=== PATIENT | male | born 1955 | race American Indian/Alaskan Native ===

== ENCOUNTER 2017-09-23 21:20 | Emergency (ER) | payer OTHER ==
[2017-09-23] MEDS ORDERED: ATIVAN IV ONE (22:50)
[2017-09-23] MEDS ORDERED: NACL 0.9% 500 ML 500 ML IV ONE (22:51)
[2017-09-23 23:12] LABS: Basophils % (Auto) 0.7 % (0.0-1.8); Eosinophils % (Auto) 0.8 % (0.0-4.3); Hemoglobin 13.4 gm/dl (11.8-15.2); Lymphocytes # (Auto) 1.1 K/mm3 (1.2-5.4); Lymphocytes % (Auto) 28.6 % (13.4-35.0); Mean Corpuscular HGB Conc 34 % (32-34); Mean Corpuscular Hemoglobin 32 pg (28-32); Mean Corpuscular Volume 95 fl (84-94); Monocytes # (Auto) 0.3 K/mm3 (0.0-0.8); Monocytes % (Auto) 7.5 % (0.0-7.3); Platelet Count 167 K/mm3 (140-440); Red Blood Count 4.23 M/mm3 (3.65-5.03); Red Cell Distribution Width 14.3 % (13.2-15.2)
[2017-09-23 23:22] LABS: INR 0.87 (0.87-1.13)
[2017-09-23 23:23] LABS: Partial Thromboplastin Time 27.5 Sec. (24.2-36.6)
[2017-09-23 23:37] LABS: Creatine Kinase MB 1.4 ng/mL (0.0-4.0)
[2017-09-23 23:38] LABS: Alanine Aminotransferase 27 units/L (7-56); Albumin 4.4 g/dL (3.9-5); BUN/Creatinine Ratio 20; Blood Urea Nitrogen 14 mg/dL (9-20); Calcium 8.7 mg/dL (8.4-10.2); Hemolysis Index 8
[2017-09-23] MEDS ORDERED: POTASSIUM CHLORIDE PO ONE (23:58)
[2017-09-23] MEDS ORDERED: NACL 0.9% 1000 ML 1,000 ML IV ONE (23:59)
--- NOTE | 2017-09-24 00:04 | Emergency Department Report ---
<MILLIE JIMÉNEZ - Last Filed: 09/24/17 05:06> ED Psych HPI - General Chief Complaint: Psych Stated Complaint: AMS Time Seen by Provider: 09/23/17 22:22 - Related Data Allergies Allergy/AdvReac Type Severity Reaction Status Date / Time No Known Allergies Allergy Verified 09/24/17 00:00 ED Review of Systems ROS: Stated complaint: AMS Other details as noted in HPI ED Course Vital Signs 09/23/17 09/23/17 09/24/17 22:35 23:00 00:00 Temperature Pulse Rate 113 H 106 H 105 H Respiratory 29 H 22 14 Rate Blood Pressure 154/94 142/86 121/67 O2 Sat by Pulse 95 96 95 Oximetry 09/24/17 09/24/17 09/24/17 00:03 00:07 01:00 Temperature Pulse Rate 109 H 103 H Respiratory 12 20 14 Rate Blood Pressure 121/67 119/73 O2 Sat by Pulse 96 96 95 Oximetry 09/24/17 09/24/17 09/24/17 01:30 01:35 01:41 Temperature Pulse Rate 101 H 97 H 101 H Respiratory 13 12 12 Rate Blood Pressure 125/76 125/76 125/76 O2 Sat by Pulse 97 97 95 Oximetry 09/24/17 09/24/17 09/24/17 01:45 01:51 01:54 Temperature 98.1 F Pulse Rate 100 H 101 H Respiratory 11 L 14 Rate Blood Pressure 125/76 125/76 O2 Sat by Pulse 97 98 Oximetry 09/24/17 09/24/17 09/24/17 01:55 02:00 03:00 Temperature Pulse Rate 99 H 97 H 94 H Respiratory 13 13 11 L Rate Blood Pressure 125/76 125/66 110/68 O2 Sat by Pulse 97 95 94 Oximetry 09/24/17 09/24/17 04:00 05:00 Temperature Pulse Rate 87 83 Respiratory 12 10 L Rate Blood Pressure 118/71 119/73 O2 Sat by Pulse 95 97 Oximetry ED Medical Decision Making - Lab Data Result diagrams: 09/23/17 22:59 09/23/17 22:59 - Medical Decision Making I evaluated Mr. Horne. He is awake and alert. He denies any chest pain. He is appropriate and cooperative. and patient understand return precautions and follow-up instructions. Critical care attestation.: If time is entered above; I have spent that time in minutes in the direct care of this critically ill patient, excluding procedure time. ED Disposition Clinical Impression: Marijuana intoxication, Hypokalemia, Altered mental status, Chest pain Disposition: DC-01 TO HOME OR SELFCARE Is pt being admited?: No Does the pt Need Aspirin: No Condition: Stable Instructions: Cannabis Abuse (ED) Additional Instructions: Your Diagnoses is marijuana intoxication. There is no marijuana intoxication discharge instructions therefore cannabis abuse discharge instructions have been provided. Follow-up with your doctor. Return if symptoms worsen. Referrals: your, pmd [Other] - 3-5 Days Time of Disposition: 05:07 <SALAS PORTILLO - Last Filed: 09/24/17 16:36> ED Psych HPI - General Source: patient, family, EMS Mode of arrival: Stretcher Limitations: Altered Mental Status - History of Present Illness Initial Comments: 62-year-old male with a past medical history of hypertension and mitral valve prolapse presents with his with complaints of possible marijuana ingestion and altered mental status. Apparently there was a marijuana brownie in the kitchen. Patient came to and stated he felt like he was dizzy, dying and had chest pain. After arrival to the ED he admitted CVA in the brownie that was laced with marijuana. Patient does not smoke marijuana, uses drugs, or drink alcohol daily. He did not know that the brownie contained marijuana and ingested the whole thing. During my evaluation patient is having involuntary jerking, agitated, talking to God but is alert and oriented to self and year. History of present illness obtained from given patient's current mental state. He does not pain her pain at this time ED Review of Systems Comment: Unobtainable due to pts medical conditions ED Past Medical Hx - Past Medical History Previous Medical History?: Yes Hx Hypertension: Yes Additional medical history: mitral valve prolapse - Surgical History Past Surgical History?: No - Social History Smoking Status: Never Smoker Substance Use Type: Alcohol ED Physical Exam - General Limitations: Altered Mental Status - Other Other exam information: General: No limitations, patient is alert in no acute distress Head exam: Atraumatic, normocephalic Eyes exam: Normal appearance, pupils equal reactive to light ENT: Moist mucous membrane, normal oropharynx Neck exam: Normal inspection, full range of motion, no meningismus nontender Respiratory exam: Clear to auscultation bilateral, no wheezes, rales, crackles Cardiovascular: Tachycardic regular rhythm Abdomen: Soft, nondistended, and nontender, with normal bowel sounds, no rebound, or guarding Extremity: Full range of motion normal inspection no deformity Back: Normal Inspection, full range of motion, no tenderness Neurologic: Alert, oriented x3, cranial nerves intact, no motor or sensory deficit, involuntary jerking movement Psychiatric: Agitated, psychosis Skin: Warm, dry, intact ED Course - Reevaluation(s) Reevaluation #1: 09/24/17 00:03 After Ativan 0.5 mg patient is resting comfortably 09/24/17 02:03 HR 99 - Consultations Consultation #1: 09/23/17 23:[address] Merchant wind operations manager [employer] community relations coordinator regarding EKG. Agrees that it does not appear to be in ST elevation [place] ED Medical Decision Making - Lab Data Result diagrams: 09/23/17 22:59 09/23/17 22:59 Lab Results 09/23/17 09/23/17 09/23/17 Range/Units 22:59 22:59 22:59 WBC 3.9 L (4.5-11.0) K/mm3 RBC 4.23 (3.65-5.03) M/mm3 Hgb 13.4 (11.8-15.2) gm/dl Hct 40.0 (35.5-45.6) % MCV 95 H (84-94) fl MCH 32 (28-32) pg MCHC 34 (32-34) % RDW 14.3 (13.2-15.2) % Plt Count 167 (140-440) K/mm3 Lymph % (Auto) 28.6 (13.4-35.0) % [place] % (Auto) 7.5 H (0.0-7.3) % Eos % (Auto) 0.8 (0.0-4.3) % Baso % (Auto) 0.7 (0.0-1.8) % Lymph # 1.1 L (1.2-5.4) K/mm3 [place] # 0.3 (0.0-0.8) K/mm3 Eos # 0.0 (0.0-0.4) K/mm3 Baso # 0.0 (0.0-0.1) K/mm3 Seg Neutrophils % 62.4 (40.0-70.0) % Seg Neutrophils # 2.4 (1.8-7.7) K/mm3 PT 12.2 (12.2-14.9) Sec. INR 0.87 (0.87-1.13) APTT 27.5 (24.2-36.6) Sec. Sodium 140 (137-145) mmol/L Potassium 3.4 L (3.6-5.0) mmol/L Chloride 101.2 (98-107) mmol/L Carbon Dioxide 24 (22-30) mmol/L Anion Gap 18 mmol/L BUN 14 (9-20) mg/dL Creatinine 0.7 L (0.8-1.5) mg/dL Estimated GFR > 60 ml/min BUN/Creatinine Ratio 20 % Glucose 109 H (75-100) mg/dL Calcium 8.7 (8.4-10.2) mg/dL Total Bilirubin 0.40 (0.1-1.2) mg/dL AST 25 (5-40) units/L ALT 27 (7-56) units/L Alkaline Phosphatase 60 (35-129) units/L Total Creatine Kinase 120 (55-170) units/L CK-MB (CK-2) 1.4 (0.0-4.0) ng/mL CK-MB (CK-2) Rel Index 1.1 (0-4) Troponin T < 0.010 (0.00-0.029) ng/mL Total Protein 6.8 (6.3-8.2) g/dL Albumin 4.4 (3.9-5) g/dL Albumin/Globulin Ratio 1.8 % Urine Color (Yellow) Urine Turbidity (Clear) Urine pH (5.0-7.0) Ur Specific [place] (1.003-1.030) Urine Protein (Negative) mg/dL Urine Glucose (UA) (Negative) mg/dL Urine Ketones (Negative) mg/dL Urine Blood (Negative) Urine Nitrite (Negative) Urine Bilirubin (Negative) Urine Urobilinogen (<2.0) mg/dL Ur Leukocyte Esterase (Negative) Urine WBC (Auto) (0.0-6.0) /HPF Urine RBC (Auto) (0.0-6.0) /HPF Urine Mucus /HPF Urine Opiates Screen Urine Methadone Screen Ur Barbiturates Screen Ur Phencyclidine Scrn Ur Amphetamines Screen U Benzodiazepines Scrn Urine Cocaine Screen U Marijuana (THC) Screen Drugs of Abuse Note Plasma/Serum Alcohol (0-0.07) % 09/23/17 09/23/17 09/23/17 Range/Units 22:59 Unknown Unknown WBC (4.5-11.0) K/mm3 RBC (3.65-5.03) M/mm3 Hgb (11.8-15.2) gm/dl Hct (35.5-45.6) % MCV (84-94) fl MCH (28-32) pg MCHC (32-34) % RDW (13.2-15.2) % Plt Count (140-440) K/mm3 Lymph % (Auto) (13.4-35.0) % [place] % (Auto) (0.0-7.3) % Eos % (Auto) (0.0-4.3) % Baso % (Auto) (0.0-1.8) % Lymph # (1.2-5.4) K/mm3 [place] # (0.0-0.8) K/mm3 Eos # (0.0-0.4) K/mm3 Baso # (0.0-0.1) K/mm3 Seg Neutrophils % (40.0-70.0) % Seg Neutrophils # (1.8-7.7) K/mm3 PT (12.2-14.9) Sec. INR (0.87-1.13) APTT (24.2-36.6) Sec. Sodium (137-145) mmol/L Potassium (3.6-5.0) mmol/L Chloride (98-107) mmol/L Carbon Dioxide (22-30) mmol/L Anion Gap mmol/L BUN (9-20) mg/dL Creatinine (0.8-1.5) mg/dL Estimated GFR ml/min BUN/Creatinine Ratio % Glucose (75-100) mg/dL Calcium (8.4-10.2) mg/dL Total Bilirubin (0.1-1.2) mg/dL AST (5-40) units/L ALT (7-56) units/L Alkaline Phosphatase (35-129) units/L Total Creatine Kinase (55-170) units/L CK-MB (CK-2) (0.0-4.0) ng/mL CK-MB (CK-2) Rel Index (0-4) Troponin T (0.00-0.029) ng/mL Total Protein (6.3-8.2) g/dL Albumin (3.9-5) g/dL Albumin/Globulin Ratio % Urine Color Yellow (Yellow) Urine Turbidity Clear (Clear) Urine pH 5.0 (5.0-7.0) Ur Specific [place] 1.020 (1.003-1.030) Urine Protein <15 mg/dl (Negative) mg/dL Urine Glucose (UA) 50 (Negative) mg/dL Urine Ketones Neg (Negative) mg/dL Urine Blood Neg (Negative) Urine Nitrite Neg (Negative) Urine Bilirubin Neg (Negative) Urine Urobilinogen < 2.0 (<2.0) mg/dL Ur Leukocyte Esterase Neg (Negative) Urine WBC (Auto) < 1.0 (0.0-6.0) /HPF Urine RBC (Auto) 1.0 (0.0-6.0) /HPF Urine Mucus Few /HPF Urine Opiates Screen Presumptive negative Urine Methadone Screen Presumptive negative Ur Barbiturates Screen Presumptive negative Ur Phencyclidine Scrn Presumptive negative Ur Amphetamines Screen Presumptive negative U Benzodiazepines Scrn Presumptive negative Urine Cocaine Screen Presumptive negative U Marijuana (THC) Screen Presumptive positive Drugs of Abuse Note Disclamer Plasma/Serum Alcohol 0.04 (0-0.07) % - EKG Data -: EKG Interpreted by Mi EKG shows normal: sinus rhythm (99), axis (12), QRS complexes (95), ST-T waves ( no ST elevation) Rate: normal - Medical Decision Making ams Likely secondary to ingestion of marijuana confirmed by UDS Patient resting comfortably after Ativan 0.5 milligrams Apparently he complained of chest pain when symptoms started. EKG revealed by Dr. Merchant and agrees no STEMI. Initial troponin negative. Repeat pending Pt signed out to DR Akin Jiménez Reassessed patient was awake for symptom resolution Reassessed for complaint of chest pain once awake and normal mental status May discharged once symptoms resolved and vital signs normalize - Differential Diagnosis drug intoxication, psychosis, encephalopathy, [place] Critical Care Time: No ED Disposition Is pt being admited?: No Does the pt Need Aspirin: No
[2017-09-24 01:01] LABS: Bilirubin,Urine NEG (Negative); Blood,Urine NEG (Negative); Color,Urine Yellow (Yellow); Mucus,Urine FEW /HPF; Protein,Urine <15 mg/dL mg/dL (Negative); Urobilinogen,Urine < 2.0 mg/dL (<2.0); WBC,Urine < 1.0 /HPF (0.0-6.0)
[2017-09-24 01:13] LABS: Amphetamine Screen,Urine PRESUMPTIVE NEGATIVE; Benzodiazepines Screen,Urine PRESUMPTIVE NEGATIVE; Cocaine Screen,Urine PRESUMPTIVE NEGATIVE; Methadone Screen,Urine PRESUMPTIVE NEGATIVE; Opiate Screen,Urine PRESUMPTIVE NEGATIVE
[2017-09-24 01:31] LABS: Cannabinoid Screen,Urine PRESUMPTIVE POSITIVE
[2017-09-24 05:33] VITALS: BP 119/73
== END 2017-09-24 05:45 | disposition home or self-care (01) ==
LOC: ED 21:20
DX: E87.6 Hypokalemia (principal); R41.82 Altered mental status, unspecified; R07.9 Chest pain, unspecified
CPT/HCPCS: 36415; 80053; 80307; 81001; 82550; 82553; 84484; 85025; 85610; 85730; 93005; 93010; 96361; 96374; 99284; G0480; J2060; J7030; J7040; 80320